=== PATIENT | female | born 1990 | race African-American/Black ===

== ENCOUNTER 2018-08-30 21:34 | Emergency (ER) | payer BC ==
[~2018-08-30] VITALS: Ht 180.3 cm; Wt 77.1 kg
--- NOTE | 2018-08-30 21:50 | NUR ---
DR INGRAM INTO EVAL PATIENT
[2018-08-30] MEDS ORDERED: ACETAMINOPHEN ES 500 MG TABLET ONE (21:56)
[2018-08-30] MEDS ORDERED: ACETAMINOPHEN 325 MG TABLET PO ONE (22:00)
[2018-08-30 22:10] LABS: *BILIRUBIN,URIN NEGATIVE (NEGATIVE); *BLOOD, URINE 3+ (NEGATIVE); *KETONES,URINE NEGATIVE (NEGATIVE); *UROBILINOGEN,URINE 0.2 E.U./dl (NORMAL); LEUKOCYTE ESTERASE ,URINE NEGATIVE (NEGATIVE); NITRITE, URINE NEGATIVE (NEGATIVE); UGLUCOSE NEGATIVE (NEGATIVE)
[2018-08-30 22:12] LABS: *URINE HCG, QUAL NEGATIVE (NEGATIVE)
[2018-08-30 22:16] LABS: *CLARITY,URINE HAZY (CLEAR); *COLOR,URINE PINK (YELLOW)
[2018-08-30 22:17] LABS: RBC,URINE 80-100 /HPF (0-3); SQUAMOUS EPITHELIAL CELL,UR FEW /HPF (NONE SEEN); WBC,URINE 0-3 /HPF (0-3)
[2018-08-30 22:24] VITALS: BP 118/85
--- NOTE | 2018-08-30 22:25 | NUR ---
Patient discharged to home in stable conditon. Written and verbal after care instructions given. Patient verbalizes understanding of instructions. WALKED OUT OF ER WITH NO DISTRESS NOTED
== END 2018-08-30 22:25 | disposition home or self-care (01) ==
LOC: ER 21:35
DX: J11.1 Influenza due to unidentified influenza virus with other respiratory manifestations (principal); Z88.0 Allergy status to penicillin
CPT/HCPCS: 84703; A4663; A9150